=== PATIENT | female | born 1995 | race Caucasian/White ===

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

== ENCOUNTER 2017-01-03 14:30 | Emergency (ER) | payer BC, OTHER | END 2017-01-03 15:18 | disposition home or self-care (01) | LOC: ER 14:30 | DX: S93.402A Sprain of unspecified ligament of left ankle, initial encounter (principal); X50.1XXA Overexertion from prolonged static or awkward postures, initial encounter; Y92.830 Public park as the place of occurrence of the external cause ==